=== PATIENT | female | born 2005 | race Caucasian/White ===

== ENCOUNTER 2023-06-29 06:46 | Emergency (ER) | payer OTHER, SELFPAY ==
[2023-06-29 06:51] VITALS: BP 108/72; PULSE 48; RESP 16; TEMP 35.9; O2SAT 100
--- NOTE | 2023-06-29 07:17 | ED_ITS ---
HPI - Ear Problem General Chief complaint: Ear/Nose/Throat Problem Stated complaint: ear infection Time Seen by Provider: 06/29/23 07:11 History of Present Illness HPI Narrative: Patient is a 18-year-old woman who does flew over from [place]. She has severe pain in her right ear. She is sinus congestion as well as general malaise. She has had no cough no sputum production no nausea no vomiting no weakness. She has had no cough or shortness of breath. She has had no drainage from her ear. Her symptoms worsen when she was on the plane. Related Data Home Medications Medication Instructions Recorded Confirmed No Known Home Medications 06/29/23 06/29/23 Allergies Allergy/AdvReac Type Severity Reaction Status Date / Time No Known Drug Allergies Allergy Verified 06/29/23 06:55 Review of Systems Status of ROS: Reports: 10 or more systems reviewed and unremarkable except as noted in History and below Exam Narrative: Exam Narrative: EXAM GENERAL: Patient appears comfortable and well. EYES: No scleral icterus. ENT: Erythema noted in the right tympanic membrane no other significant findings. THYROID: no thyroid nodules or thyromegaly. LYMPH: No supraclavicular or cervical lymphadenopathy. SKIN: Visible skin seen during exam normal or with benign process only. EXT: No dependent lower extremity pedal edema. HEART: Regular rate and rhythm with no murmurs, rubs, or gallops. LUNGS: Clear to auscultation bilaterally with no crackles or wheezes. ABD: Soft, non tender, non distended. PSYCH: Good eye contact, speech is not pressured. Const: Vital Signs, click to edit/add: Vital Signs - 24 hr 06/29/23 06:51 Temperature 96.6 F L Pulse Rate [Left P ulse Oximeter] 48 L Respiratory Rate 16 Blood Pressure [Ri ght Upper Arm] 108/72 Pulse Oximetry 100 Oxygen Delivery Me thod Room Air Course Course ED Course: Patient seen and examined. Vital Signs Vital signs: Initial Vital Signs Temperature 96.6 F L 06/29/23 06:51 Temperature Source Temporal Artery Scan 06/29/23 06:51 Pulse Rate 48 L 06/29/23 06:51 Pulse Rhythm Regular 06/29/23 06:51 Respiratory Rate 16 06/29/23 06:51 Blood Pressure 108/72 06/29/23 06:51 Blood Pressure Mean 84 06/29/23 06:51 Blood Pressure Position Sitting 06/29/23 06:51 Pulse Oximetry 100 06/29/23 06:51 Oxygen Delivery Method Room Air 06/29/23 06:51 Vital Signs Temperature 96.6 F L 06/29/23 06:51 Pulse Rate 48 L 06/29/23 06:51 Respiratory Rate 16 06/29/23 06:51 Blood Pressure 108/72 06/29/23 06:51 Pulse Oximetry 100 06/29/23 06:51 Oxygen Delivery Method Room Air 06/29/23 06:51 Temperature 96.6 F L 06/29/23 06:51 Pulse Rate 48 L 06/29/23 06:51 Respiratory Rate 16 06/29/23 06:51 Blood Pressure 108/72 06/29/23 06:51 Pulse Oximetry 100 06/29/23 06:51 Oxygen Delivery Method Room Air 06/29/23 06:51 Medical Decision Making MDM Narrative Medical decision making narrative: Patient presents with red Haile her right ear as well as severe pain. Her diagnosis otitis media. I did place her on amoxicillin a recommended Tylenol Motrin rest and fluids with primary care follow-up as needed. Discharge Plan Discharge Clinical Impression: Otitis media Patient Disposition: Home, Self-Care Condition: Stable Instructions: Ear Infection (ED) Additional Instructions: Amoxicillin as directed Tylenol Motrin Rest Fluids Activity Level: No Restrictions Discharge Diet: Regular Prescriptions: No Action No Known Home Medications Stand Alone Forms: MyHealth Info Instructions
== END 2023-06-29 07:34 | disposition home or self-care (01) ==
LOC: ED 07:25
PROVIDERS: Emergency Provider Internal Medicine
DX: H66.91 Otitis media, unspecified, right ear (principal)
CPT/HCPCS: 99283